=== PATIENT | female | born 1960 | race Hispanic/Latino ===

== ENCOUNTER 2019-08-16 09:50 | Outpatient (CLI) | payer BC ==
--- NOTE | 2019-08-16 10:44 | RAD ---
RIGHT KNEE 4 VIEWS: HISTORY: M25.561, pain. COMPARISON: 04/28/2017. FINDINGS: Postop changes involving the patella. Tricompartment arthrosis and degenerative changes. No evidenc e for significant abnormal suprapatellar recess fluid. IMPRESSION: No acute fracture or dislocation. Arthrosis and degenerative changes. Stable postoperative changes of the patella. POS: RRE
== END 2019-08-16 09:51 | disposition home or self-care (01) ==
LOC: NAV RAD 09:50
PROVIDERS: ATTEND Family Medicine
DX: M25.561 Pain in right knee (principal); M17.11 Unilateral primary osteoarthritis, right knee; Z98.890 Other specified postprocedural states

== ENCOUNTER 2020-12-08 00:31 | Emergency (ER) | payer BC ==
[2020-12-08] MEDS ORDERED: Cyclobenzaprine 10 MG TAB ONE (01:10)
== END 2020-12-08 01:15 | disposition home or self-care (01) ==
LOC: NAV ERS 00:31
DX: R10.12 Left upper quadrant pain (principal); R07.81 Pleurodynia; E11.9 Type 2 diabetes mellitus without complications; I10 Essential (primary) hypertension
CPT/HCPCS: 99283

== ENCOUNTER 2022-11-25 08:56 | Outpatient (CLI) | payer BC, OTHER ==
[2022-11-25 10:26] LABS: ALT (SGPT) 66 U/L (8-55); AST (SGOT) 48 U/L (5-34); Albumin 3.7 g/dL (3.5-5.0); Alkaline Phosphatase 194 U/L (40-110); Anion Gap 16 mmol/L (10-20); BUN (Urea Nitrogen) 23 mg/dL (9.8-20.1); Bilirubin, Total 0.4 mg/dL (0.2-1.2); Calc. Creatinine Clearance 0 mL/min (70-130); Calcium 9.2 mg/dL (7.8-10.44); Carbon Dioxide 22 mmol/L (22-29); Chloride 104 mmol/L (98-107); Estimated GFR 54; Glucose 302 mg/dL (70-105); Potassium 3.6 mmol/L (3.5-5.1); Protein, Total 6.7 g/dL (6.0-8.3); Sodium 138 mmol/L (136-145)
[2022-11-25 11:09] LABS: #Basophils 0.1 thou/uL (0.0-0.2); #Eosinphils 0.2 thou/uL (0.0-0.7); #Lymphocytes 2.5 thou/uL (1.20-3.40); #Monocytes 0.9 thou/uL (0.11-0.59); #Neutrophils 6.4 thou/uL (1.40-6.50); %Basophils 1.2 % (0.0-1.0); %Eosinophils 2.4 % (0.0-10.0); %Lymphocytes 24.8 % (21.0-51.0); %Neutrophils 62.7 % (42.0-75.0); Hematocrit 44.4 % (36.0-47.0); Hemoglobin 14.6 g/dL (12.0-16.0); Mean Corpuscular Hemoglobin 29.2 pg (27.0-31.0); Mean Corpuscular Volume 88.4 fl (78.0-98.0); Mean Platelet Volume 12.5 fL (7.4-10.4); Platelet Count 249 10x3/uL (130-400); RBC Distribution Width 12.5 % (11.5-14.5); Red Blood Cell (RBC) Count 5.02 mill/uL (4.20-5.40); White Blood Cell (WBC) Count 10.2 10x3/uL (4.8-10.8)
[2022-11-25 17:11] LABS: Hemoglobin A1c Greater than 14.0 % (4.0-6.0)
== END 2022-11-25 08:57 | disposition home or self-care (01) ==
LOC: HPNAV 08:56
PROVIDERS: ATTEND Internal Medicine Endocrinology, Diabetes & Metabolism
DX: E11.65 Type 2 diabetes mellitus with hyperglycemia (principal); E78.5 Hyperlipidemia, unspecified; I10 Essential (primary) hypertension; E55.9 Vitamin D deficiency, unspecified
CPT/HCPCS: 36415; 80053; 83036; 85025